=== PATIENT | female | born 1965 | race Caucasian/White ===

== ENCOUNTER → 2016-11-05 | Outpatient (CLI) | payer OTHER ==
[~2016-11-05] MED LIST: ASPI-232 PO; CYAN100073 PO; MULT-506 PO; OMEP10CA2 PO; PXL20 PO
== END | disposition home or self-care (01) ==
LOC: C.PAPS 11:56
PROVIDERS: ATTEND Obstetrics & Gynecology
DX: N63 Unspecified lump in breast (principal); R87.619 Unspecified abnormal cytological findings in specimens from cervix uteri

== ENCOUNTER → 2016-11-13 | Outpatient (CLI) | payer OTHER ==
--- NOTE | 2016-11-13 16:55 | MAMMOGRAPHY REPORT ---
BILATERAL DIGITAL DIAGNOSTIC MAMMOGRAM TOMOSYNTHESIS WITH CAD AND TARGETED LEFT ULTRASOUND: 7 CLINICAL HISTORY: 51-year-old woman with previous lipoma excision from the superior left breast pres ents with new palpable lump inferior to the left clavicle. Annual bilateral screening mammogram. TECHNIQUE: Breast tomosynthesis in addition to standard 2D mammography was performed. Current study was also evaluated with a Computer Aided Detection (CAD) system. COMPARISON: Comparison is made to exams dated: 11/07/2015 mammogram, 11/04/2014 mammogram, and 013 mammogram - [facility]. BREAST COMPOSITION: The tissue of both breasts is almost entirely fatty. FINDINGS: There is evidence of prior reduction mammoplasty. Stable intramammary lymph nodes in eac h upper outer quadrant. Scattered benign-appearing microcalcifications. The palpable marker is not visualized mammographically and therefore further evaluation with ultrasound was performed in the a diamond of palpable concern. Overall, no suspicious mass, architectural distortion or cluster of microc alcifications is seen mammographically. Targeted ultrasound was performed along the surgical scar in the superior 11:00 left breast and also superior to the surgical scar in the area of new lump located just inferior to the clavicle. Along the scar, there is linear architectural distortion consistent with scar tissue and a small subderma l cyst versus fat necrosis. In the area of new palpable concern in the approximate 11:00 breast, 15 cm from the nipple, there is a microlobulated hypoechoic solid versus cystic mass measuring approxi mately 2.3 x 2.3 x 2.8 mm. This is indeterminate and further evaluation with tissue sampling is rec ommended. IMPRESSION: ACR BI-RADS CATEGORY 4B: INTERMEDIATE SUSPICION FOR MALIGNANCY, TARGETED ULTRASOUND ACR BI-RADS CATEGORY 4B: INTERMEDIATE SUSPICION FOR MALIGNANCY 1. Stable bilateral mammograms, without mammographic evidence of malignancy. Advise follow-up in 1 year. 2. Indeterminate hypoechoic microlobulated 2.8 mm mass in the area of new palpable lump pointed out by the patient, in the approximate 11:00 breast just inferior to the clavicle. Ultrasound-guided f ine-needle aspiration versus core needle biopsy is recommended for definitive characterization. These results and recommendations were discussed with the patient at the time of the exam. She tenta tively scheduled the procedure prior to leaving our department. Approximately 10% of breast cancers are not detected with mammography. A negative mammographic repor t should not delay biopsy if a clinically suggestive mass is present. Heidy Diaz M.D. ay/:11/13/2016 15:31:30 Distance Education Faculty Liaison: Mariela Rico, [facility] letter sent: Abnormal 4/5 BI-RADS Code: ACR BI-RADS Category 4B: Intermediate Suspicion For Malignancy Ultrasound BI-RADS: AC R BI-RADS Category 4B: Intermediate Suspicion For Malignancy
== END | disposition home or self-care (01) ==
LOC: C.MAMM 13:00
PROVIDERS: ATTEND Obstetrics & Gynecology
DX: N63 Unspecified lump in breast (principal)

== ENCOUNTER → 2016-11-29 | Outpatient (CLI) | payer OTHER ==
--- NOTE | 2016-11-29 12:09 | Discharge Instructions ---
Discharge Instructions Procedure Procedure Date: Nov 29, 2016. Reason for visit: Left Mass--Possible Fna. Discharge Discharge Date: Nov 29, 2016. Discharge Diagnosis: status post breast biopsy Instructions Activity Recommendations: Additional Limitations (see below) Return to School/Work: no limitations Recommended Home Diet: No Limitations Provider Instructions: ACTIVITY RECOMMENDATIONS: * No lifting, pushing, pulling or exercising the affected side for three days. RETURN TO SCHOOL/WORK: * You may return to work/school after the procedure, but do not perform any strenuous activities for 24 to 48 hours. MEDICATIONS: * Tylenol (two 325 mg) every four to six hours if needed for mild pain (if not allergic to Tylenol). DIET: * Resume previous diet. SPECIAL CARE INSTRUCTIONS: * Keep biopsy site dry for 24 hours. May shower after 24 hours, but do not soak (bathe) incision. * May remove Tegaderm (plastic patch) tomorrow AFTER showering. * Leave the steri-strips on for one week. Allow the steri-strips to fall off by themselves. If not off after one week, you may remove them. You may place a Bandaid crosswise over the strips, if desired. * Apply ice 10 minutes on and 10 minutes off as needed. * Wear a bra at bedtime to sleep more comfortably for 2-3 days. * Your referring physician should have the results after approximately 5 to 7 business days. * Call for unusual bleeding, fever, drainage, etc or if you have any questions call during normal business hours or after hours call Dr Sullivan, [phone]. FOLLOW UP VISIT: Follow-up with Referring Physician as scheduled. Allergies Coded Allergies: Cephalexin (Unverified Allergy, Unknown, RASH, 08/01/15) Nam Buitrago Recommendations: Call your doctor if: * Temperature above 101 degrees * Pain not relieved by pain medicine ordered * There is increased drainage or redness from any incision * You have any unanswered questions or concerns. Your Doctors Instructions noted above were prepared by provider Trinh Sullivan. Patient Signature Section: Patient Instructions Signature Page Bailey Parrloenardo Patient (or Guardian) Signature/Date: I have read and understand the instructions given to me by my caregivers. Caregiver/RN/Doctor Signature/Date: The above-named patient and/or guardian has received patient instructions on this date. + Original Patient Signature Page (only) stays with chart. Please make copy for patient.
--- NOTE | 2016-11-29 12:51 | MAMMOGRAPHY REPORT ---
THIS REPORT HAS BEEN AMENDED. ULTRASOUND GUIDED BIOPSY LEFT BREAST: 11/29/2016 CLINICAL HISTORY: Left 11:00 breast/infraclavicular mass. PATIENT CONSENT: The procedure, risks and benefits were discussed with the patient and informed writ ten consent was obtained. A timeout was performed immediately prior to the procedure. PROCEDURE DESCRIPTION: With ultrasound guidance, aseptic technique, and lidocaine as the local anest hetic (1% lidocaine to anesthetize the skin and 1% lidocaine with epinephrine to anesthetize the magy per tissues), the mass of concern in the left 11:00 breast/infraclavicular region was sampled 3 time s with an 18-gauge Quick-Core biopsy needle, and 2 times with a 14-gauge Achieve biopsy needle. Dir ect pressure was applied to the site immediately post procedure and hemostasis was achieved. A biop sy marker clip was not placed as this area is too far superior to be included mammographically. The patient tolerated the procedure without complication. She was given wound care instructions. The s pecimens were sent to pathology for analysis. COMPARISON: Comparison is made to exams dated: 11/07/2015 mammogram, 11/04/2014 mammogram, 10/21/2013 mammogram, 10/11/2011 mammogram, and 10/13/2012 mammogram - [facility]. IMPRESSION: ULTRASOUND GUIDED BIOPSY Ultrasound guided core needle biopsy of the left 11:00/infraclavicular breast mass. The patient naheed l receive pathology results from her referring provider. Trinh Sullivan M.D. ah/:11/29/2016 12:29:07 Physician Practice Market Manager: Mariela ECKERT(Marely)(Marialuisa), [facility] AMENDMENT: 12/05/2016 Trinh Sullivan M.D. Pathology results from ultrasound-guided core needle biopsy of the left 11:00 breast mass were revie wed on 12/05/2016. The pathology report states "No tumor identified. The specimen consists of adipos e tissue and a few small fragments of benign-appearing lymph node tissue." Given the pathology resu lts, the mass likely represents a lymph node. Recommend follow-up ultrasound of the left breast in 6 months to confirm stability.
== END | disposition home or self-care (01) ==
LOC: C.MAMM 11:04
PROVIDERS: ATTEND Obstetrics & Gynecology
DX: N63 Unspecified lump in breast (principal)

== ENCOUNTER → 2016-12-19 | Outpatient (CLI) | payer OTHER ==
--- NOTE | 2016-12-19 15:50 | DIAGNOSTIC IMAGING REPORT ---
LEFT TIBIA/FIBULA 2 VIEWS ROUTINE CLINICAL HISTORY: LUMBAR FACET SYNDROME pain COMPARISON: None. DISCUSSION: The bones and joint spaces appear intact. There is no evidence of fracture, dislocation or bony disease. There is no evidence for soft tissue swelling. IMPRESSION: Negative study. Electronically signed by: Niraj Zuniga M.D. 12/19/2016 3:49 PM Dictated Date/Time: 12/19/2016 3:48 PM
== END | disposition home or self-care (01) ==
LOC: C.RADBC 15:15
PROVIDERS: ATTEND Anesthesiology
DX: M54.08 Panniculitis affecting regions of neck and back, sacral and sacrococcygeal region (principal)

== ENCOUNTER → 2017-06-06 | Outpatient (CLI) | payer OTHER ==
--- NOTE | 2017-06-06 15:33 | MAMMOGRAPHY REPORT ---
ULTRASOUND OF LEFT BREAST: 06/06/2017 CLINICAL HISTORY: The patient underwent a biopsy of a palpable left 11:00/infraclavicular breast mass , with pathology yielding adipose tissue and a few small fragments of a benign-appearing lymph node. The patient presents for short interval follow-up of the biopsied mass. She has not noticed a clini mercedes change in the size of the lump. COMPARISON: Comparison is made to exams dated: 11/29/2016 ultrasound biopsy, 11/13/2016 ultrasound, 10/27 mammogram, 11/07/2015 mammogram, 11/04/2014 mammogram, and 10/21/2013 mammogram - [facility]. TECHNIQUE: Real-time targeted ultrasound of the left breast was performed. FINDINGS: Real-time, high resolution targeted ultrasound was performed of the left breast in the region of the previously biopsied mass. In the left breast at 11:00, 9 cm from the nipple again noted are postsurg ical changes from prior surgical excision, including a small 3 x 3 mm subdermal anechoic mass which i s stable compared to the October 2016 exam and may represent a small oil cyst from fat necrosis relat ed to prior surgery. In the left breast at 11:00, 15 cm from the nipple infraclavicular region again noted is a hypoechoic mass which measures 3 x 2 x 2 mm, not significantly changed compared to the nu2016 exam where the mass measured 3 x 2 mm. Surrounding vascularity is seen. This mass was re cently biopsied with pathology yielding benign findings including fragments of a benign-appearing lym ph node. Given the benign pathology and given the stability, the mass is considered benign and likel y represents a lymph node. IMPRESSION: ACR BI-RADS CATEGORY 2: BENIGN Hypoechoic 3 mm mass in the left 11:00 breast/infraclavicular region is stable compared to the 2016 exam. This was previously biopsied and yielded benign pathology. Given the benign pathology and given the stability, the mass is considered benign and likely represents a lymph node based on pa thology. There is no sonographic evidence of malignancy. Return to annual mammogram screening schedule is recommended, due October 2017. The patient was verb ally notified of the results. Trinh Sullivan M.D. /:06/06/2017 14:44:51 Attending Technologist: Edwin Forbes RT(R)(M), [facility] Claims Assistant: Trinh Sullivan MD, [facility] letter sent: Normal 1/2 BI-RADS Code: ACR BI-RADS Category 2: Benign
== END | disposition home or self-care (01) ==
LOC: C.MAMM 14:15
PROVIDERS: ATTEND Obstetrics & Gynecology
DX: N63 Unspecified lump in breast (principal)

== ENCOUNTER → 2017-06-23 | Outpatient (CLI) | payer OTHER | END | disposition home or self-care (01) | LOC: C.PATHSPEC 09:49 | PROVIDERS: ATTEND Obstetrics & Gynecology | DX: N95.0 Postmenopausal bleeding (principal) ==

== ENCOUNTER → 2017-06-23 | Outpatient (CLI) | payer OTHER ==
[2017-06-23 18:48] LABS: URINE APPEARANCE CLEAR (CLEAR); URINE BILIRUBIN NEG (NEG); URINE COLOR YELLOW; URINE NITRITE NEG (NEG); URINE PH 7.5 (4.5-7.5); URINE SPECIFIC GRAVITY 1.008 (1.000-1.030); UROBILINOGEN NEG (NEG)
[2017-06-23 18:49] LABS: MANUAL MICROSCOPIC REQUIRED? NO; REVIEW REQ? NO
== END | disposition home or self-care (01) ==
LOC: C.LABSPEC 17:38
PROVIDERS: ATTEND Obstetrics & Gynecology
DX: N30.00 Acute cystitis without hematuria (principal)

== ENCOUNTER → 2017-08-06 | Outpatient (CLI) | payer OTHER ==
--- NOTE | 2017-08-06 16:10 | DIAGNOSTIC IMAGING REPORT ---
LEG LENGTH STUDY (WHOLE LEG) CLINICAL HISTORY: LENGTH LENGTH, DISCREPANCY R>L. COMPARISON STUDY: No previous studies for comparison. FINDINGS: Right leg length is 85.8 cm and left leg length is 85.7 cm. No suspicious osseous lesions are present. IMPRESSION: Right leg length of 85.8 cm and left leg length of 85.7 cm. Electronically signed by: Rodrick Ritchie M.D. 08/06/2017 4:08 PM Dictated Date/Time: 08/06/2017 3:58 PM
== END | disposition home or self-care (01) ==
LOC: C.RADBC 15:25
PROVIDERS: ATTEND Physician Assistant
DX: M21.759 Unequal limb length (acquired), unspecified femur (principal)

== ENCOUNTER → 2017-11-24 | Outpatient (CLI) | payer OTHER ==
--- NOTE | 2017-11-24 15:53 | MAMMOGRAPHY REPORT ---
BILATERAL DIGITAL SCREENING MAMMOGRAM TOMOSYNTHESIS WITH CAD: 11/24/2017 CLINICAL HISTORY: Routine screening. Patient has no complaints. TECHNIQUE: Breast tomosynthesis in addition to standard 2D mammography was performed. Current study was also evaluated with a Computer Aided Detection (CAD) system. COMPARISON: Comparison is made to exams dated: 06/06/2017 ultrasound, 11/07/2015 mammogram, 11/04/2014 m ammogram, 10/21/2013 mammogram, 10/13/2012 mammogram, and 10/11/2011 mammogram - [facility]. BREAST COMPOSITION: The tissue of both breasts is almost entirely fatty. FINDINGS: No suspicious masses, calcifications, or areas of architectural distortion are noted in ei ther breast. There has been no significant interval change compared to prior exams. Small circumscri bed benign-appearing mass in the left superior breast is stable compared to multiple prior exams. IMPRESSION: ACR BI-RADS CATEGORY 2: BENIGN There is no mammographic evidence of malignancy. A 1 year screening mammogram is recommended. The pa tient will receive written notification of the results. Approximately 10% of breast cancers are not detected with mammography. A negative mammographic report should not delay biopsy if a clinically suggestive mass is present. Trinh Sullivan M.D. ah/:11/24/2017 15:02:27 Vehicle Service Attendant: Odalys QUEEN)(M), [facility] letter sent: Normal 1/2 BI-RADS Code: ACR BI-RADS Category 2: Benign
== END | disposition home or self-care (01) ==
LOC: C.MAMM 13:42
PROVIDERS: ATTEND Internal Medicine
DX: Z12.31 Encounter for screening mammogram for malignant neoplasm of breast (principal)